=== PATIENT | male | born 1985 | race Caucasian/White ===

== ENCOUNTER → 2020-12-16 08:24 | Outpatient (CLI) | payer BC, SELFPAY ==
[2020-12-16 09:11] LABS: Basophils # 0.1 K/mm3 (0-0.2); Basophils % 1.2 % (0.1-2.0); Eosinophils # 0.2 K/mm3 (0.0-0.4); Eosinophils % 3.5 % (0.1-12.0); Hematocrit 43.2 % (42.0-52.0); Hemoglobin 15.1 g/dL (14.1-18.0); Lymphocytes # 1.6 K/mm3 (0.7-4.5); Lymphocytes % 22.2 % (10-50); Mean Corpuscular Hemoglobin 33.6 pg (27.0-31.2); Mean Platelet Volume 7.6 fl (7.4-10.4); Monocytes # 0.4 K/mm3 (0.1-1.0); Monocytes % 5.5 % (1.7-9.3); Neutrophils # 4.7 K/mm3 (1.8-7.8); Neutrophils % 67.5 % (37.0-80.0); Platelet Count 266 K/mm3 (142-424); Red Cell Distribution Width 13.7 % (11.5-17.5)
[2020-12-16 10:00] LABS: Chloride 103 mmol/L (98-107); Sodium 140 mmol/L (136-145)
[2020-12-16 10:01] LABS: Potassium 4.1 mmoL/L (3.5-5.1)
[2020-12-16 10:03] LABS: Blood Urea Nitrogen 15 mg/dl (9-20); Estimated Glomerular Filt Rate 97 ml/min (>60); GFR (African American) 117 ML/MIN (>60)
[2020-12-16 10:04] LABS: Anion Gap 14.1 mEq/L (5-15); Calcium 8.9 mg/dl (8.4-10.2); Carbon Dioxide 27 mmol/L (22.0-30.0); Glucose 105 mg/dl (74-100)
== END ==
PROVIDERS: Visit Provider Surgery
DX: L72.9 Follicular cyst of the skin and subcutaneous tissue, unspecified (principal)
CPT/HCPCS: 36415; 80048; 85025

== ENCOUNTER → 2020-12-18 07:41 | Outpatient (CLI) | payer BC, SELFPAY | PROVIDERS: Visit Provider Surgery | DX: Z01.812 Encounter for preprocedural laboratory examination (principal); Z11.52 Encounter for screening for COVID-19; L72.9 Follicular cyst of the skin and subcutaneous tissue, unspecified | CPT/HCPCS: U0003 ==

== ENCOUNTER 2020-12-19 07:03 | Day surgery (SDC) | payer BC, SELFPAY ==
[2020-12-15 14:41] VITALS: BMI 44.4
[2020-12-19] VITALS (9 sets, daily range): BP systolic 146–189; BP diastolic 86–108; PULSE 65–96; RESP 14–18; TEMP 36.2–36.3; O2SAT 96–100
--- NOTE | 2020-12-19 07:43 | P.PN_ITS ---
[facility] Anesthesia Checklist - Patient Identification Patient Identification: Arm Band - Structural Data Admitted From: Home Planned Operative Procedure/s: Scalp mass excision Consent for Planned Operative Procedure(s) Verified: Yes - NPO Status Verified Time NPO: 00:00 - Additional verifications Anesthesia Reactions: No Hx Blood Transfusions: No Blood Transfusion Reaction: No - Airway Assessment C-Spine Mobility Assessed: Yes TMJ Mobility Assessed: Yes Dentition: Poor Dentition - Neurological Assessment Level of Consciousness: Awake Hx Seizures: No Numbness or tingling in extremities: No - Anesthesia Plan Anesthesia Risk discussed: Yes Anesthesia Plan: Verified ASA Class: II Anesthesia Type: General [facility] History I have reviewed the patient's past medical history: Yes Medical History: Denies:: Cancer, Diabetes Mellitus Type 1, Diabetes Mellitus Type 2, Internal Pacemaker, MRSA, Seizures *Have you ever received a pneumonia vaccine?: No *Have you received a flu vaccine this season?: Yes Other Medical History: Reports: Other (Obesity). Denies: Blood Transfusion Reaction Anesthesia experience/problems:: None Laterality Cases: Bilateral: Tonsillectomy Other Surgeries: No: Pacemaker Amputation: No - *Social History Smoking Status: Heavy tobacco smoker Tobacco Type: smokeless tobacco # Packs/Day (cigarettes): 1 Alcohol Intake: current Alcohol Intake Frequency:: a few times a month (Weekly) Substance Use Type: denies use *Occupational Status:: employed Housing: house *Travel in the last 8 weeks: None Family Hx:: Cancer, Diabetes
--- NOTE | 2020-12-19 09:39 | P.OP_ITS ---
Date of procedure: 12/19/20 Pre-op Diagnosis:: Scalp cyst Post-op Diagnosis:: Same Procedure performed:: Excision of cyst from the scalp (excisional length of 7.0 cm) with intermediate complexity closure Surgeon:: Jean Carlos Dao MD TRAINING AND DEVELOPMENT COORDINATOR:: Other Anesthesia: LMA Estimated blood loss (mL): 50 Clinical Note:: Patient is a 35-year-old who presents to the office for evaluation of the cyst on his scalp. He does not have a primary care provider. He had been diagnosed with sebaceous cyst on his scalp at age 20. It has been present for about 15 years. It has increased in size particularly over the past 6 months. It is somewhat irritating. Patient was seen and examined in the office. He had a rather large inclusion cyst on the apex of the scalp. Options were discussed. He wished to pursue excision. Operative findings:: Consistent with a large inclusion cyst, pilar cyst. Operative note:: Consent was obtained and patient was taken to the operating room. He was positioned in supine position. General anesthesia was induced via LMA. The area was prepped and draped in the standard surgical fashion. Lesion was marked with skin marker for planned elliptical excision. Length of the elliptical incision was approximately 7 cm. Local anesthetic was infiltrated. Skin incision was made. Careful dissection was carried down to the cyst wall. The cyst was carefully dissected free from the surrounding scalp tissues using tenotomy dissection and some use of scalpel. Ultimately the skin ellipse with the attached intact cyst was sent off as specimen. Wound was thoroughly irrigated. Tissues were undermined somewhat using electrocautery. Local anesthetic was infiltrated. Hemostasis was achieved with electrocautery. Tissues reapproximated with interrupted 2-0 Vicryl. Skin was closed with skin milton. Clean dry sterile dressing was applied. Condition: stable Disposition: PACU Specimens:: Scalp cyst Complications:: None immediately apparent
--- NOTE | 2020-12-19 11:03 | HMH.ANESI ---
[facility] Anesthesia Record Part I Intake, IV Amount: 1,000 Estimated blood loss (mL): 50 Urine output (mL): 0 Blood Pressure: 162/86 SaO2: 97 Pulse Rate: 96 Respiratory Rate: 14 Temperature: 97.3 F Patient is:: Awake, Drowsy Stable to PACU at:: 09:54
--- NOTE | 2020-12-21 12:15 | P.PN_ITS ---
[facility] Anesthesia Record Part II Discharge Time: 10:14 Destination: [facility] PACU nurse assessment reviewed?: Yes Patient Condition:: Good Anesthesia Complications:: None Swallowing reflex intact?: Yes Cyanosis?: No Blood Pressure: 181/97 Pulse Rate: 70 Temperature: 97.1 F Mental Status: Alert & Oriented Pain level:: 0 Nausea and/or vomitting:: None Intake, IV Amount: 500
[2020-12-21 12:17] VITALS: BP 181/97; PULSE 70; TEMP 36.2
== END 2020-12-19 10:44 | disposition home or self-care (01) ==
PROVIDERS: PCP Emergency Medicine; Visit Provider Surgery
PROC: (CPT 11426; principal; 2020-12-19 08:45)
DX: L72.8 Other follicular cysts of the skin and subcutaneous tissue (principal); Z72.0 Tobacco use; Z80.9 Family history of malignant neoplasm, unspecified; Z83.3 Family history of diabetes mellitus
CPT/HCPCS: 11426; 12031; 96374; J0131; J2405

== ENCOUNTER → 2022-06-04 08:45 | Outpatient (CLI) | payer BC, SELFPAY ==
[2022-06-04 17:24] LABS: Basophils # 0.1 K/mm3 (0-0.2); Basophils % 1.5 % (0.1-2.0); Eosinophils # 0.2 K/mm3 (0.0-0.4); Eosinophils % 3.5 % (0.1-12.0); Hematocrit 46.1 % (42.0-52.0); Hemoglobin 15.2 g/dL (14.1-18.0); Lymphocytes # 1.6 K/mm3 (0.7-4.5); Lymphocytes % 22.7 % (10-50); Mean Corpuscular Hemoglobin 33.9 pg (27.0-31.2); Mean Corpuscular Volume 102.7 fl (80-94); Mean Platelet Volume 9.9 fl (7.4-10.4); Monocytes # 0.5 K/mm3 (0.1-1.0); Monocytes % 6.5 % (1.7-9.3); Neutrophils # 4.6 K/mm3 (1.8-7.8); Neutrophils % 65.8 % (37.0-80.0); Platelet Count 325 K/mm3 (142-424); Red Blood Count 4.49 M/mm3 (4.60-6.20); Red Cell Distribution Width 12.8 % (11.5-17.5); White Blood Count 6.9 K/mm3 (4.8-10.8)
[2022-06-04 17:34] LABS: Alanine Aminotransferase 234 U/L (12-78); Albumin Level 4.8 g/dl (3.5-5.0); Albumin/Globulin Ratio 1.8 (1.1-1.8); Alkaline Phosphatase 169 U/L (38-126); Anion Gap 16.9 mEq/L (5-15); Aspartate Amino Transferase 153 U/L (17-59); Bilirubin,Total 0.9 mg/dl (0.2-1.3); Blood Urea Nitrogen 14 mg/dl (9-20); Calcium 10.1 mg/dl (8.4-10.2); Carbon Dioxide 30 mmol/L (22.0-30.0); Chloride 99 mmol/L (98-107); Chol/HDL Ratio 5.2 (1-3.5); Cholesterol 262 mg/dl (140-200); Estimated Glomerular Filt Rate 96 ml/min (>60); GFR (African American) 116 ML/MIN (>60); Globulin 2.7 g/dL (1.3-3.2); Glucose 90 mg/dl (74-100); HDL Cholesterol 50 mg/dl (40-60); Potassium 4.9 mmoL/L (3.5-5.1); Sodium 141 mmol/L (136-145); Total Protein,Serum 7.5 g/dl (6.3-8.2); Triglycerides 130 mg/dl (30-150); VLDL Cholesterol 26 mg/dL (0-40)
[2022-06-04 17:45] LABS: Direct LDL Cholesterol 182.75 mg/dL (100-129)
[2022-06-04 17:49] LABS: 25-OH Vitamin D, Total 23.9 ng/mL (30-100)
[2022-06-04 18:04] LABS: Thyroid Stimulating Hormone 2.78 uIU/mL (0.465-4.68)
== END ==
LOC: LAB.DROPOF 06-05 06:27
PROVIDERS: PCP Student in an Organized Health Care Education/Training Program; Visit Provider Student in an Organized Health Care Education/Training Program
DX: I10 Essential (primary) hypertension (principal); R53.83 Other fatigue; E55.9 Vitamin D deficiency, unspecified
CPT/HCPCS: 80053; 80061; 82306; 84443; 85025

== ENCOUNTER → 2022-07-04 09:00 | Outpatient (CLI) | payer BC, SELFPAY ==
[2022-07-04 14:56] LABS: Basophils # 0.1 K/mm3 (0-0.2); Basophils % 1.4 % (0.1-2.0); Eosinophils # 0.2 K/mm3 (0.0-0.4); Eosinophils % 2.7 % (0.1-12.0); Hematocrit 46.5 % (42.0-52.0); Hemoglobin 15.1 g/dL (14.1-18.0); Lymphocytes # 1.5 K/mm3 (0.7-4.5); Lymphocytes % 24.7 % (10-50); Mean Corpuscular HGB Conc 32.4 g/dL (31.8-35.4); Mean Corpuscular Hemoglobin 33.3 pg (27.0-31.2); Mean Corpuscular Volume 102.8 fl (80-94); Mean Platelet Volume 9.6 fl (7.4-10.4); Monocytes # 0.4 K/mm3 (0.1-1.0); Neutrophils % 65.2 % (37.0-80.0); Platelet Count 356 K/mm3 (142-424); Red Blood Count 4.53 M/mm3 (4.60-6.20); White Blood Count 6.1 K/mm3 (4.8-10.8)
[2022-07-04 15:17] LABS: Hemoglobin A1C 5.4 % (4.0-6.0)
[2022-07-04 15:23] LABS: Alanine Aminotransferase 148 U/L (12-78); Albumin Level 4.7 g/dl (3.5-5.0); Albumin/Globulin Ratio 1.8 (1.1-1.8); Alkaline Phosphatase 175 U/L (38-126); Aspartate Amino Transferase 120 U/L (17-59); Blood Urea Nitrogen 15 mg/dl (9-20); Calcium 9.7 mg/dl (8.4-10.2); Carbon Dioxide 28 mmol/L (22.0-30.0); Chloride 105 mmol/L (98-107); Chol/HDL Ratio 5.5 (1-3.5); Cholesterol 247 mg/dl (140-200); Estimated Glomerular Filt Rate 85 ml/min (>60); GFR (African American) 103 ML/MIN (>60); Globulin 2.6 g/dL (1.3-3.2); Glucose 113 mg/dl (74-100); HDL Cholesterol 45 mg/dl (40-60); Sodium 142 mmol/L (136-145); Total Protein,Serum 7.3 g/dl (6.3-8.2); Triglycerides 178 mg/dl (30-150); VLDL Cholesterol 36 mg/dL (0-40)
[2022-07-04 15:34] LABS: Direct LDL Cholesterol 165.17 mg/dL (100-129)
[2022-07-04 16:23] LABS: Vitamin B12 610 pg/mL (239-931)
[2022-07-04 16:31] LABS: Folate 5.91 ng/mL
[2022-07-13 22:46] LABS: Hep A Ab, IgM NEGATIVE; Hepatitis B Core Antibody IgM NEGATIVE; Hepatitis B Surface Antigen NEGATIVE; Hepatitis C Antibody 0.1
== END ==
PROVIDERS: PCP Student in an Organized Health Care Education/Training Program; Visit Provider Student in an Organized Health Care Education/Training Program
DX: I10 Essential (primary) hypertension (principal); R60.9 Edema, unspecified; R74.8 Abnormal levels of other serum enzymes
CPT/HCPCS: 80053; 80061; 80074; 82607; 82746; 83036; 85025

== ENCOUNTER → 2022-07-18 08:11 | Outpatient (CLI) | payer BC, SELFPAY ==
--- NOTE | 2022-07-18 08:15 | CA_ITS ---
FINAL REPORT TECHNIQUE: Grayscale, color Doppler and duplex Doppler ultrasound of the kidneys, aorta and renal arteries was performed. Multiple velocities were measured. CLINICAL HISTORY: uncontrolled htn, Obesity, Smoker FINDINGS: Aorta velocity: 91.5 cm/sec Right kidney: 11.7 cm. No evidence of hydronephrosis or mass. Right intrarenal RI: .66 Right renal artery velocity: 178 cm/sec. Right RAR (Renal artery-Aortic Ratio): 1.94 Left Kidney: 12.0 cm. No evidence of hydronephrosis or mass. Left intrarenal RI: .64 Left renal artery velocity: 172 cm/sec. Left RAR (Renal Artery-Aortic Ratio): 1.88 IMPRESSION: No evidence of significant renal artery stenosis. CT angiogram or postcontrast MR angiogram would be more sensitive for evaluation of possible renal artery stenosis. Reviewed, Interpreted and Dictated by Jean Carlos Starr III, MD Transcribed by Alley Robbins Authenticated and [facility]
--- NOTE | 2022-07-18 08:19 | US_ITS ---
FINAL REPORT CLINICAL HISTORY: Elevated Liver Enzymes FINDINGS: Ultrasound images of the right upper quadrant were obtained. The pancreas is partially obscured. The liver parenchyma is increased echogenicity. The gallbladder is well visualized and the wall appears normal. There are no gallstones. The common duct is normal. Limited images of the right kidney are unremarkable. IMPRESSION: Fatty liver. Reviewed, Interpreted and Dictated by Jean Carlos Starr III, MD Transcribed by Bennett Mahoney Authenticated and . [facility]
== END ==
PROVIDERS: PCP Student in an Organized Health Care Education/Training Program; Visit Provider Student in an Organized Health Care Education/Training Program
DX: I10 Essential (primary) hypertension (principal); R74.8 Abnormal levels of other serum enzymes
CPT/HCPCS: 76705; 93976

== ENCOUNTER 2022-09-30 11:06 | Emergency (ER) | payer BC, SELFPAY ==
[2022-09-30 11:08] VITALS: BP 160/85; PULSE 100; RESP 18; TEMP 36.6; O2SAT 99; BMI 46.5
--- NOTE | 2022-09-30 11:10 | HMH.EDGENADL ---
Discharge Plan Disposition Patient Disposition: Home, Self-Care Prescriptions Prescriptions: No Action amoxicillin 875 mg tablet 875 mg PO BID Qty: 14 0RF atorvastatin 10 mg tablet 10 mg PO DAILY Qty: 30 2RF lisinopril-hydrochlorothiazide 20-12.5 mg tablet See Rx Instructions .ROUTE .COMPLEX Qty: 30 1RF Dose Instruction: 1 TAB ORALLY DAILY Rx Instructions: 1 TAB ORALLY DAILY Referrals Follow up/Referrals: Mali Nava PA [Primary Care Provider] - See instructions Activity Restrictions/Add. Instructions Additional Instructions/Restrictions: Your chest x-ray did not show any obvious focal consolidation is not consistent with pneumonia. Your cough with hemoptysis which is coughing up blood is most likely due to viral bronchitis. Antibiotics are not indicated unless you have pneumonia or prolonged symptoms beyond 2 weeks. Please return with worsening shortness of breath inability keep fever down or with persistent symptoms beyond 2 to 3 weeks. Clinical Impressions Clinical Impression: Bronchitis, Cough with hemoptysis Discharge ED Provider: Cindi Khan General Adult HPI General Chief complaint: Upper Respiratory Infection Stated complaint: rib,congestion pain, Coughing up blood Time Seen by Provider: 09/30/22 11:10 History of Present Illness HPI narrative: Patient is a 37-year-old male presenting with hemoptysis. States that he started to get chest congestion and sinus congestion several days ago and has been coughing since that time and over the last day or 2 has been having some rust colored sputum which he felt was likely blood. He denies any dre bloody sputum. Denies any shortness of breath. Does state that he has some right-sided chest discomfort with coughing and movement that was alleviated with ibuprofen. Denies any lower extremity swelling denies any history of DVT or PE. Denies any prolonged immobilization periods including surgeries plane rides or car rides that are excessively long. Denies any fever. Patient denies having been incarcerated around people who have been incarcerated recently. Patient denies any injection drug use or being around anyone who was recently been injecting drugs. Patient denies any travel outside of the country. No known tuberculosis contacts. Related Data Previous Rx's Medication Instructions Recorded amoxicillin 875 mg tablet 875 mg PO BID #14 tabs 07/04/22 atorvastatin 10 mg tablet 10 mg PO DAILY #30 tabs 07/04/22 lisinopril 20 See Rx Instructions .Route 08/22/22 mg-hydrochlorothiazide 12.5 mg .COMPLEX #30 tabs tablet Allergies Allergy/AdvReac Type Severity Reaction Status Date / Time meperidine [From Demerol] Allergy Unknown Verified 07/04/22 08:26 Sulfa (Sulfonamide Allergy Unknown Verified 07/04/22 08:26 Antibiotics) [facility] Disclaimer: The information contained in this section may have been updated after the patient was seen, as this information can be updated by other users. Medical History (Updated 09/30/22 @ 11:33 by Emani Hernadez MD) Hypertension Social History Smoking Status: Never smoker second hand exposure: No alcohol intake: current substance use type: denies use current occupational status: employed Travel in the last 8 weeks: None housing: house current occupational exposures/hazards: Yes caffeine: No ROS Obtained: Yes All systems reviewed & no additional complaints except as documented Physical Exam General General appearance: alert and in no apparent distress Respiratory Respiratory exam: Present normal lung sounds bilaterally; Absent respiratory distress, wheezes, stridor, accessory muscle use or prolonged expiratory phase Cardiovascular Cardiovascular exam: Present regular rate; Absent tachycardia Neurological Exam Neurological exam: Present alert and oriented X3 Medical Decision Making Tommy Inquiry Pt re
[2022-09-30 11:17] VITALS: BMI 46.5
--- NOTE | 2022-09-30 11:17 | XR_ITS ---
FINAL REPORT CLINICAL HISTORY: cough, hemoptysis FINDINGS: Two views of the chest were obtained. The heart size and pulmonary vascularity are within normal limits. The mediastinum is normal. No acute pulmonary abnormality is identified. There is no pneumothorax. The bony thorax is intact. IMPRESSION: No active cardiopulmonary disease. Reviewed, Interpreted and Dictated by Jean Carlos Starr III, MD Transcribed by Jennifer Lopez Authenticated and [facility]
--- NOTE | 2022-09-30 11:17 | PC.NURSE ---
[address] DR العراقي AT BEDSIDE
--- NOTE | 2022-09-30 11:22 | PC.NURSE ---
pt to xray
--- NOTE | 2022-09-30 11:23 | PC.NURSE ---
PT TO XR
--- NOTE | 2022-09-30 11:26 | PC.NURSE ---
PT RETURNED FORM XR
--- NOTE | 2022-09-30 11:30 | PC.NURSE ---
DR العراقي AT BEDSIDE TO UPDATE PT ON POC
[2022-09-30 11:37] VITALS: BP 168/119; PULSE 102; RESP 18; TEMP 36.7; O2SAT 95
== END 2022-09-30 11:38 | disposition home or self-care (01) ==
PROVIDERS: Emergency Provider Student in an Organized Health Care Education/Training Program; PCP Student in an Organized Health Care Education/Training Program
DX: J20.9 Acute bronchitis, unspecified (principal); R04.2 Hemoptysis; I10 Essential (primary) hypertension
CPT/HCPCS: 71046; 99283; 99284

== ENCOUNTER → 2023-06-13 23:53 | Outpatient (CLI) | payer BC, SELFPAY ==
[2023-06-13 19:00] LABS: Basophils # 0.1 K/mm3 (0-0.2); Eosinophils # 0.2 K/mm3 (0.0-0.4); Eosinophils % 3.4 % (0.1-12.0); Hematocrit 44.2 % (42.0-52.0); Hemoglobin 15.3 g/dL (14.1-18.0); Lymphocytes # 1.6 K/mm3 (0.7-4.5); Lymphocytes % 27.8 % (10-50); Mean Corpuscular HGB Conc 34.6 g/dL (31.8-35.4); Mean Corpuscular Hemoglobin 37.4 pg (27.0-31.2); Mean Corpuscular Volume 108.2 fl (80-94); Mean Platelet Volume 10.4 fl (7.4-10.4); Monocytes # 0.4 K/mm3 (0.1-1.0); Monocytes % 6.7 % (1.7-9.3); Neutrophils # 3.5 K/mm3 (1.8-7.8); Neutrophils % 61.1 % (37.0-80.0); Platelet Count 280 K/mm3 (142-424); Red Blood Count 4.08 M/mm3 (4.60-6.20); Red Cell Distribution Width 14.9 % (11.5-17.5); White Blood Count 5.7 K/mm3 (4.8-10.8)
[2023-06-13 19:17] LABS: Alanine Aminotransferase 189 U/L (12-78); Albumin Level 4.5 g/dl (3.5-5.0); Albumin/Globulin Ratio 1.7 (1.1-1.8); Alkaline Phosphatase 198 U/L (38-126); Anion Gap 19.3 mEq/L (5-15); Aspartate Amino Transferase 206 U/L (17-59); Bilirubin,Total 1.1 mg/dl (0.2-1.3); Blood Urea Nitrogen 11 mg/dl (9-20); Carbon Dioxide 26 mmol/L (22.0-30.0); Chloride 97 mmol/L (98-107); Chol/HDL Ratio 6.1 (1-3.5); Cholesterol 251 mg/dl (140-200); Estimated Glomerular Filt Rate 109 ml/min (>60); GFR (African American) 132 ML/MIN (>60); Globulin 2.7 g/dL (1.3-3.2); Glucose 96 mg/dl (74-100); HDL Cholesterol 41 mg/dl (40-60); Potassium 3.3 mmoL/L (3.5-5.1); Sodium 139 mmol/L (136-145); Total Protein,Serum 7.2 g/dl (6.3-8.2); Triglycerides 273 mg/dl (30-150); VLDL Cholesterol 55 mg/dL (0-40)
[2023-06-13 19:48] LABS: Thyroid Stimulating Hormone 1.73 uIU/mL (0.465-4.68)
[2023-06-13 20:30] LABS: 25-OH Vitamin D, Total < 12.8 ng/mL (30-100)
== END ==
PROVIDERS: PCP Nurse Practitioner Family; Visit Provider Student in an Organized Health Care Education/Training Program
DX: E78.5 Hyperlipidemia, unspecified (principal); I10 Essential (primary) hypertension; E55.9 Vitamin D deficiency, unspecified; Z68.42 Body mass index [BMI] 45.0-49.9, adult
CPT/HCPCS: 80053; 80061; 82306; 84443; 85025

== ENCOUNTER 2024-09-20 09:35 | Outpatient (CLI) | payer BC, SELFPAY ==
[2024-09-20 18:55] LABS: Basophils # 0.1 K/mm3 (0-0.2); Basophils % 1.5 % (0.1-2.0); Eosinophils # 0.2 K/mm3 (0.0-0.4); Eosinophils % 2.1 % (0.1-12.0); Hematocrit 44.2 % (42.0-52.0); Hemoglobin 14.8 g/dL (14.1-18.0); Lymphocytes # 1.4 K/mm3 (0.7-4.5); Lymphocytes % 19.3 % (10-50); Mean Corpuscular HGB Conc 33.5 g/dL (31.8-35.4); Mean Corpuscular Hemoglobin 37.5 pg (27.0-31.2); Mean Corpuscular Volume 111.9 fl (80-94); Mean Platelet Volume 10.6 fl (7.4-10.4); Monocytes # 0.6 K/mm3 (0.1-1.0); Monocytes % 7.7 % (1.7-9.3); Platelet Count 322 K/mm3 (142-424); Red Blood Count 3.95 M/mm3 (4.60-6.20); Red Cell Distribution Width 13.1 % (11.5-17.5); White Blood Count 7.3 K/mm3 (4.8-10.8)
[2024-09-20 20:32] LABS: Alanine Aminotransferase 120 U/L (12-78); Albumin Level 4.9 g/dl (3.5-5.0); Albumin/Globulin Ratio 1.8 (1.1-1.8); Alkaline Phosphatase 305 U/L (38-126); Anion Gap 12.7 mEq/L (5-15); Aspartate Amino Transferase 149 U/L (17-59); Bilirubin,Total 2.5 mg/dl (0.2-1.3); Blood Urea Nitrogen 9 mg/dl (9-20); Calcium 9.9 mg/dl (8.4-10.2); Carbon Dioxide 29 mmol/L (22.0-30.0); Chloride 97 mmol/L (98-107); Chol/HDL Ratio 5.6 (1-3.5); Cholesterol 245 mg/dl (140-200); Estimated Glomerular Filt Rate 126 ml/min (>60); GFR (African American) 153 ML/MIN (>60); Globulin 2.8 g/dL (1.3-3.2); Glucose 87 mg/dl (74-100); HDL Cholesterol 44 mg/dl (40-60); Potassium 3.7 mmoL/L (3.5-5.1); Sodium 135 mmol/L (136-145); Total Protein,Serum 7.7 g/dl (6.3-8.2); Triglycerides 149 mg/dl (30-150); VLDL Cholesterol 30 mg/dL (0-40)
[2024-09-20 20:44] LABS: Direct LDL Cholesterol 172.38 mg/dL (100-129)
[2024-09-20 20:48] LABS: 25-OH Vitamin D, Total 19.1 ng/mL (30-100)
[2024-09-20 21:03] LABS: Thyroid Stimulating Hormone 4.65 uIU/mL (0.465-4.68)
[2024-09-20 21:10] LABS: HIV Combo NEGATIVE (Negative)
[2024-09-20 21:17] LABS: Hepatitis C Ab Qual. W/ RFX NEGATIVE (Negative)
== END 2024-09-20 23:59 | disposition home or self-care (01) ==
LOC: LAB.DROPOF 09-21 17:27
PROVIDERS: PCP Family Medicine; Visit Provider Family Medicine
DX: I10 Essential (primary) hypertension (principal)
CPT/HCPCS: 80053; 80061; 82306; 84443; 85025; 86803; 87389

== ENCOUNTER 2024-10-15 07:56 | Outpatient (CLI) | payer BC, SELFPAY ==
--- NOTE | 2024-10-15 08:00 | US_ITS ---
FINAL REPORT TECHNIQUE: Multiple transverse and longitudinal images CLINICAL HISTORY: ELEVATED LIVER ENZYMES COMPARISON: 07/18/2022 FINDINGS: The gallbladder shows no wall thickening, distention or stone disease. No biliary ductal dilatation is appreciated. No fluid collections are seen. There is fatty infiltration of the liver. Limited portions of the right kidney are unremarkable. IMPRESSION: Fatty liver. Reviewed, Interpreted and Dictated by Yesy De Jesus MD Transcribed by Saba Beltran Authenticated and [facility]
== END 2024-10-15 23:59 | disposition home or self-care (01) ==
LOC: RAD 07:57
PROVIDERS: PCP Family Medicine; Visit Provider Family Medicine
DX: R74.8 Abnormal levels of other serum enzymes (principal); K76.0 Fatty (change of) liver, not elsewhere classified
CPT/HCPCS: 76705

== ENCOUNTER 2025-05-11 17:36 | Inpatient (IN) | payer BC, SELFPAY ==
[2025-05-11 17:38] VITALS: BP 122/86; PULSE 69; RESP 20; TEMP 36.5; O2SAT 100; BMI 40.0
--- NOTE | 2025-05-11 17:40 | ED_ITS ---
Discharge Plan Disposition Patient Disposition: Admitted Condition: Good Clinical Impressions Clinical Impression: Acute kidney injury, Acute foot pain Discharge ED Provider: Rony Elder General Adult HPI <DALTON Caballero - Last Filed: 05/11/25 19:04> General Chief complaint: Extremity Injury, Lower Stated complaint: right foot painful,swollen Time Seen by Provider: 05/11/25 17:39 Mode of Arrival: Ambulatory Source of Information: Patient and Spouse Limitations: No Limitations History of Present Illness HPI narrative: 39-year-old male presents emergency department with right foot/great toe pain that has been ongoing for the last 2 weeks, patient denies any trauma or injury per history, denies any fever chills chest pain shortness of breath nausea vomiting constipation diarrhea, no abdominal pain, no urinary type symptomatology, no melena no hematochezia, no hematuria, no lower back pain, no urinary bladder or bowel dysfunction, no radicular type symptomatology, no numbness or tingling, patient is a non-smoker, current everyday alcohol use patient tells me he drinks 1 glass of bourbon a day , denies any other illicit drug use, other past medical history is consistent with VELASQUEZ, hypertension, obesity, ELIZABETH, hyperlipidemia, history of gastric sleeve. Initial triage vitals are unremarkable. Also of note, patient has been utilizing Motrin and Tylenol as needed for symptomatic relief, has had some difficulty ambulating for the spouse at the bedside, Motrin and Tylenol have provided some relief. Last use was around 2 PM today. Also of note, patient relayed to nursing staff that he believes that eating fish , around 2 weeks ago precipitated his great toe pain on the right. Please note that above description of symptoms, in this electronic medical record under categorization of recalled from ER triage doctor by RN are reflective of an initial nursing assessment, however, is not reflective of my full history and physical exam that was personally taken and clarified. Consequentially, this preceding description of symptoms, which may include the patient's categorized chief complaint in the EMR, do not reflect my personal clinical impression, and the ultimate description of history of present illness and patient stated complaints should be deferred to this section of the note. Unless stated otherwise or congruent with this section of the note, additional signs, symptoms, or incongruence should be interpreted as inaccurate with my clinical impression. Onset (ago): week(s) Related Data Previous Rx's ?Medication ?Instructions ?Recorded atorvastatin 20 mg tablet (Lipitor) 20 mg PO DAILY #30 tabs 09/30/24 cholecalciferol (vitamin D3) 1,250 1,250 mcg PO WEEKLY #5 tabs 09/30/24 mcg (50,000 unit) tablet lisinopril 20 2 tab PO DAILY #60 tabs 09/25 04/21 mg-hydrochlorothiazide 25 mg tablet bisoprolol fumarate 10 mg tablet See Rx Instructions . Route 01/07/25 .COMPLEX #90 tabs Allergies Allergy/AdvReac Type Severity Reaction Status Date / Time meperidine (From Demerol) Allergy Unknown Verified 09/20/24 09:19 Sulfa (Sulfonamide Allergy Unknown Verified 09/20/24 09:19 Antibiotics) amlodipine AdvReac Rash Verified 09/20/24 09:19 [facility] <DALTON Caballero - Last Filed: 05/11/25 19:04> [facility] Disclaimer: The information contained in this section may have been updated after the patient was seen, as this information can be updated by other users. Medical History (Updated 05/11/25 @ 20:13 by Rony Elder DO) Cough with hemoptysis Bronchitis Scalp cyst Hypertension Hyperlipidemia Surgical History No significant past surgical history Family History Other No significant family history Social History Smoking Status: Never smoker second hand exposure: No alcohol intake: current alcohol intake frequency: a few times a month substance use type: denies use current occupational status: employed Travel in the last 8 weeks?: None housing: house current occupational exposures/hazards: Yes caffeine: No Have you lived/traveled outside [place] in past 30 days?: No Contact w/someone who lives/traveled outside [place] past 30 days?: No Exposure to someone with infectious disease in past 14 days?: No Do you have a fever (greater than 100.4 F or 38 C)?: No Have you tested positive for COVID-19?: No Exposed to someone with COVID-19 in past 14 days?: No Do you have a sore throat?: No Do you have a cough?: No Do you have any weakness?: No Do you have any diarrhea?: No Are you experiencing any unusual bleeding?: No Do you have any muscle aches/pain?: No Do you have any abdominal pain?: No Are you experiencing loss of taste or smell?: No Other Medical History Have you received the Flu Vaccine for this season: Yes Have you received the Pneumonia Vaccine: No <DALTON Caballero - Last Filed: 05/11/25 19:04> ROS Obtained: Yes All systems reviewed & no additional complaints except as documented Physical Exam <DALTON Caballero - Last Filed: 05/11/25 19:04> General General appearance: alert and in no apparent distress Head Head exam: atraumatic and normocephalic Eye Eye exam: Present PERRL and EOMI ENT ENT exam: Present mucous membranes moist Neck Neck exam: Present normal inspection Chest Chest inspection: Present normal inspection and symmetric chest wall rise Respiratory Respiratory exam: Present normal lung sounds bilaterally; Absent respiratory distress Cardiovascular Cardiovascular exam: Present regular rate and normal rhythm Abdominal Exam Abdominal exam: Present soft; Absent tenderness Extremities Exam Extremities exam: Present normal inspection, full ROM, tenderness and other (There is minimal to mild soft tissue swelling of the great toe, some pain to palpation over the great toe/first MTP joint, no erythema, no obvious acute deformity or open fracture, patient has good strength, moves extremity command with good movement plantarflexion and dorsiflexion, negative Homans') Neurological Exam Neurological exam: Present alert and oriented X3 Psychiatric Psychiatric exam: Present normal affect Skin Skin exam: Present warm and dry; Absent erythema Medical Decision Making <DALTON Caballero - Last Filed: 05/11/25 19:04> Medical Records Medical records reviewed: Yes I reviewed the patient's medical records. Screening: Per USPSTF and CDC recommendations, given the prevalence of disease in our region, it is our hospital?s policy to screen for HIV and viral Hepatitis for all patients aged 18 and over and those with ongoing risk factors. Tommy Inquiry Pt receiving controlled substance: Yes Tommy was queried for this patient: No Reason not queried -: Emergent pt cond-no time Risks and benefits of using a controlled substance: were discussed with pt by me Vital Signs: 05/11/25 17:38 05/11/25 19:12 05/11/25 19:57 Temperature 97.7 F 98.9 F Temperature Source Oral Oral Pulse Rate 66 57 L Pulse Rate [Left Radial] 69 Respiratory Rate 20 17 Blood Pressure 107/62 L 108/67 L Blood Pressure [Right Arm] 122/86 Blood Pressure Mean [Right Arm] 98 02 Sat by Pulse Oximetry 100 100 Oxygen Delivery Method Room Air Room Air Room Air Lab Data Lab results reviewed: Yes I reviewed the patient's lab results. Lab Results 05/11/25 17:50: WBC 5.7, RBC 2.77 L, Hgb 11.0 L, Hct 31.7 L, MCV 114.4 H, MCH 39.7 H, MCHC 34.7, RDW 14.3, Plt Count 249, MPV 10.4, Neut % (Auto) 62.0, Lymph % (Auto) 26.8, [place] % (Auto) 6.0, Eos % (Auto) 3.9, Baso % (Auto) 0.9, Neut # (Auto) 3.6, Lymph # (Auto) 1.5, [place] # (Auto) 0.3, Eos # (Auto) 0.2, Baso # (Auto) 0.1, ESR 38 H, Sodium 136, Potassium 4.8, Chloride 105, Carbon Dioxide 18 L, Anion Gap 17.8 H, BUN 40 H, Creatinine 3.10 H, Estimated Creat Clear 61, E stimated GFR 23 L, Est GFR ( Amer) 27 L, Glucose 109 H, Uric Acid 13.7 H, Calcium 8.8, Total Bilirubin 1.2, AST 79 H, ALT 65, Alkaline Phosphatase 239 H, C-Reactive Protein 5.7 H, Total Protein 7.4, Albumin 4.2, Globulin 3.2, Albumin/Globulin Ratio 1.3 05/11/25 17:50 05/11/25 17:50 Orders (Tests/Meds): ED MEDICATIONS Generic Name Dose Route Start Last Admin Trade Name Freq PRN Reason Stop Dose Admin Lactated Ringer's 1,000 mls @ 999 mls/hr 05/11/25 19:49 05/11/25 19:52 Lactated Ringer's 1000 Ml Bag IV 05/11/25 20:49 999 mls/hr .Q1H1M ONE Administration Discontinued Medications Generic Name Dose Route Start Last Admin Trade Name Freq PRN Reason Stop Dose Admin Colchicine 1.2 mg 05/11/25 18:40 05/11/25 18:57 Colchicine 0.6mg Tablet PO 05/11/25 18:41 1.2 mg ONCE ONE Administration Oxycodone HCl 5 mg 05/11/25 17:58 05/11/25 18:04 Oxycodone 5mg Immediate Release Tablet PO 05/11/25 17:59 5 mg ONCE ONE Administration Prednisone 40 mg 05/11/25 18:40 05/11/25 18:57 Prednisone 20mg Tab PO 05/11/25 18:41 40 mg ONCE ONE Administration ORDERS Category Date Time Status XR foot RT min 3V Stat Exams 05/11/25 17:53 Completed CRP [C-Reactive Protein] Stat Lab 05/11/25 17:50 Completed Complete Blood Count Auto Diff Stat Lab 05/11/25 17:50 Completed Comprehensive Metabolic Panel Stat Lab 05/11/25 17:50 Completed ESR [Erythrocyte Sedimentation Rate] Stat Lab 05/11/25 17:50 Completed Uric Acid Stat Lab 05/11/25 17:50 Completed Medical Decision Narrative: 39-year-old male presents the emergency department with right foot pain no trauma or injury per history for 2 weeks, most localized to the first great toe, differential diagnose include but not limited to stress/march fracture, foot sprain/strain, osteoarthritis, gouty arthritis, pseudogout, cellulitis, overuse injury, ligamentous injury among others. Will obtain x-ray of the foot, CRP CBC CMP ESR uric acid level, and will give 5 mg p.o. oxycodone for symptomatic relief. ESR is mildly evaded at 38 CBC is notable for erythrocyte opinion at 2.7, hemoglobin hematocrit are 11 and 31.7 respectively. CMP is notable for AST elevation at 79 which is improved from previous in August 2024. ALP is elevated at 239 does appear improved from August 2024. Will give 1.2 mg colchicine p.o. load here in the emergency department as well as 40 mg p.o. prednisone here in the emergency department. I discussed this patient's case with the attending physician Dr. Elder at shift change who will be assuming the patient's care/workup, disposition is pending laboratory studies and x-ray results. <Rony Elder, DO - Last Filed: 05/11/25 20:13> Vital Signs: 05/11/25 17:38 05/11/25 19:12 05/11/25 19:57 Temperature 97.7 F 98.9 F Temperature Source Oral Oral Pulse Rate 66 57 L Pulse Rate [Left Radial] 69 Respiratory Rate 20 17 Blood Pressure 107/62 L 108/67 L Blood Pressure [Right Arm] 122/86 Blood Pressure Mean [Right Arm] 98 02 Sat by Pulse Oximetry 100 100 Oxygen Delivery Method Room Air Room Air Room Air Lab Data Lab Results 05/11/25 17:50: WBC 5.7, RBC 2.77 L, Hgb 11.0 L, Hct 31.7 L, MCV 114.4 H, MCH 39.7 H, MCHC 34.7, RDW 14.3, Plt Count 249, MPV 10.4, Neut % (Auto) 62.0, Lymph % (Auto) 26.8, [place] % (Auto) 6.0, Eos % (Auto) 3.9, Baso % (Auto) 0.9, Neut # (Auto) 3.6, Lymph # (Auto) 1.5, [place] # (Auto) 0.3, Eos # (Auto) 0.2, Baso # (Auto) 0.1, ESR 38 H, Sodium 136, Potassium 4.8, Chloride 105, Carbon Dioxide 18 L, Anion Gap 17.8 H, BUN 40 H, Creatinine 3.10 H, Estimated Creat Clear 61, E stimated GFR 23 L, Est GFR ( Amer) 27 L, Glucose 109 H, Uric Acid 13.7 H, Calcium 8.8, Total Bilirubin 1.2, AST 79 H, ALT 65, Alkaline Phosphatase 239 H, C-Reactive Protein 5.7 H, Total Protein 7.4, Albumin 4.2, Globulin 3.2, Albumin/Globulin Ratio 1.3 Orders (Tests/Meds): ED MEDICATIONS Generic Name Dose Route Start Last Admin Trade Name Freq PRN Reason Stop Dose Admin Lactated Ringer's 1,000 mls @ 999 mls/hr 05/11/25 19:49 05/11/25 19:52 Lactated Ringer's 1000 Ml Bag IV 05/11/25 20:49 999 mls/hr .Q1H1M ONE Administration Discontinued Medications Generic Name Dose Route Start Last Admin Trade Name Freq PRN Reason Stop Dose Admin Colchicine 1.2 mg 05/11/25 18:40 05/11/25 18:57 Colchicine 0.6mg Tablet PO 05/11/25 18:41 1.2 mg ONCE ONE Administration Oxycodone HCl 5 mg 05/11/25 17:58 05/11/25 18:04 Oxycodone 5mg Immediate Release Tablet PO 05/11/25 17:59 5 mg ONCE ONE Administration Prednisone 40 mg 05/11/25 18:40 05/11/25 18:57 Prednisone 20mg Tab PO 05/11/25 18:41 40 mg ONCE ONE Administration ORDERS Category Date Time Status XR foot RT min 3V Stat Exams 05/11/25 17:53 Completed CRP [C-Reactive Protein] Stat Lab 05/11/25 17:50 Completed Complete Blood Count Auto Diff Stat Lab 05/11/25 17:50 Completed Comprehensive Metabolic Panel Stat Lab 05/11/25 17:50 Completed ESR [Erythrocyte Sedimentation Rate] Stat Lab 05/11/25 17:50 Completed Uric Acid Stat Lab 05/11/25 17:50 Completed Medical Decision Narrative: 39-year-old male presents the emergency department with right foot pain no trauma or injury per history for 2 weeks, most localized to the first great toe, differential diagnose include but not limited to stress/march fracture, foot sprain/strain, osteoarthritis, gouty arthritis, pseudogout, cellulitis, overuse injury, ligamentous injury among others. Will obtain x-ray of the foot, CRP CBC CMP ESR uric acid level, and will give 5 mg p.o. oxycodone for symptomatic relief. ESR is mildly evaded at 38 CBC is notable for erythrocyte opinion at 2.7, hemoglobin hematocrit are 11 and 31.7 respectively. CMP is notable for AST elevation at 79 which is improved from previous in August 2024. ALP is elevated at 239 does appear improved from August 2024. Will give 1.2 mg colchicine p.o. load here in the emergency department as well as 40 mg p.o. prednisone here in the emergency department. I discussed this patient's case with the attending physician Dr. Elder at [facility] who will be assuming the patient's care/workup, disposition is pending laboratory studies and x-ray results. I was consulted by the CHERISE, and we discussed the complexity of problems being addressed. I approved the treatment and management plan for this patient's care in the emergency department, thus performing a substantive portion of the medical decision making. Rony Elder DO This is Dr. Elder. I received handoff of care on this patient at 7 PM from the outgoing provider. I agree with his assessment and plan listed above. The patient essentially presented with significant pain that is worse with weightbearing along the first metatarsophalangeal joint. He states that his mother has a history of gout, he has a diet that is heavy in meat as well as alcohol. He states that he has been taking Motrin 600 mg daily for the past several days. This has minimally helped his symptoms. Leading suspicion was that this patient was experiencing new onset gout so we obtained hematologic labs as well as an x-ray of the right foot. We also treated the patient with 1.2 mg of a colchicine load as well as 40 mg of prednisone here in the emergency department. The patient's labs did result and were significant for an acute kidney injury with a creatinine of 3.1, his baseline is 0.7. He does not have any significant electrolyte derangements otherwise and his potassium is normal. No leukocytosis. I do not feel that the degree of Motrin that he has been taking would account for this significant of an acute kidney injury, although I guess it is possible. Additionally the patient states that he has been drinking plenty of nonalcoholic liquid beverages at home and he is producing adequate amounts of urine. The patient definitely necessitates admission to the hospital for further workup of the etiology of his acute kidney injury. Therefore I had an interactive discussion with the hospital medicine service who agreed to evaluate the patient in the emergency department. After our discussion and their evaluation they agreed to admit the patient to their service and accept primary responsibility of the patient moving forward. Of note, after informed the patient that he necessitates admission to the hospital he had a vasovagal episode where he became pale and diaphoretic and nearly lost consciousness. We did obtain an EKG during this time which was personally interpreted by me and demonstrated normal sinus rhythm at a rate of 60 bpm, normal axis, no MT prolongation, narrow QRS, no QTc prolongation. No ST elevation or depression. No overt signs of ischemia or arrhythmia Critical Care <DALTON Caballero - Last Filed: 05/11/25 19:04> Critical Care Time Critical Care Time: No
--- NOTE | 2025-05-11 17:53 | XR_ITS ---
PROCEDURE INFORMATION: Exam: XR Right Foot Exam date and time: 05/11/2025 5:58 PM Age: 39 years old Clinical indication: Pain; Foot; Right; Additional info: Great toe and dorsal foot pain no injury TECHNIQUE: Imaging protocol: Radiologic exam of the right foot. Views: 3 or more views. COMPARISON: No relevant prior studies available. FINDINGS: Bones/joints: Normal. Soft tissues: Normal. IMPRESSION: No acute findings.
[2025-05-11] MEDS: OXYCODONE 5MG IMMEDIATE RELEASE TABLET 5 MG PO (18:04)
[2025-05-11 18:19] LABS: Albumin Level 4.2 g/dl (3.5-5.0); Chloride 105 mmol/L (98-107); Potassium 4.8 mmoL/L (3.5-5.1); Sodium 136 mmol/L (136-145)
[2025-05-11 18:22] LABS: Alanine Aminotransferase 65 U/L (12-78); Albumin/Globulin Ratio 1.3 (1.1-1.8); Alkaline Phosphatase 239 U/L (38-126); Anion Gap 17.8 mEq/L (5-15); Aspartate Amino Transferase 79 U/L (17-59); Bilirubin,Total 1.2 mg/dl (0.2-1.3); Carbon Dioxide 18 mmol/L (22.0-30.0); Globulin 3.2 g/dL (1.3-3.2); Total Protein,Serum 7.4 g/dl (6.3-8.2)
[2025-05-11 18:23] LABS: Calcium 8.8 mg/dl (8.4-10.2); Glucose 109 mg/dl (74-100)
[2025-05-11 18:33] LABS: Hematocrit 31.7 % (42.0-52.0); Hemoglobin 11.0 g/dL (14.1-18.0); Immature Granulocytes % 0.4 %; Mean Corpuscular HGB Conc 34.7 g/dL (31.8-35.4); Mean Corpuscular Hemoglobin 39.7 pg (27.0-31.2); Mean Corpuscular Volume 114.4 fl (80-94); Nucleated Red Blood Cells % 0 %; Platelet Count 249 K/mm3 (142-424); Red Blood Count 2.77 M/mm3 (4.60-6.20); Red Cell Distribution Width-SD 60.5 fL; White Blood Count 5.7 K/mm3 (4.8-10.8)
[2025-05-11] MEDS: COLCHICINE 0.6MG TABLET 1.2 MG PO (18:57)
[2025-05-11 19:08] LABS: Blood Urea Nitrogen 40 mg/dl (9-20); Creatinine Clearance Estimated 61 mL/min (50-200); Creatinine,Serum 3.10 mg/dl (0.66-1.25); Estimated Glomerular Filt Rate 23 ml/min (>60); GFR (African American) 27 ML/MIN (>60); Uric Acid 13.7 mg/dl (3.5-8.5)
[2025-05-11 19:12] VITALS: BP 107/62; PULSE 66; O2SAT 100
[2025-05-11 19:13] LABS: C-Reactive Protein 5.7 mg/L (0-4)
--- NOTE | 2025-05-11 19:31 | ECG_ITS ---
APPROVED REPORT Exam: Resting ECG HR:60 bpm ECG Measurements Heart Rate 60 AXES TX 154 P 14 QRSd 102 QRS 49 QT 386 T 12 QTc 387 Conclusion Normal sinus rhythm Normal axis Normal intervals No STEMI Isolated T wave inversion in lead III Electronically signed by : Rony Elder, 05/12/2025 03:08:25
[2025-05-11] MEDS: LACTATED RINGERS 1000ML 1,000 ML 999 ML IV (19:52)
[2025-05-11 19:57] VITALS: BP 108/67; PULSE 57; RESP 17; TEMP 37.2; O2SAT 99
[2025-05-11 20:15] VITALS: BP 105/62; PULSE 64; RESP 11; O2SAT 100
--- NOTE | 2025-05-11 20:26 | PC.NURSE ---
pt arrived to floor via wheelchair from ED
[2025-05-11 20:34] VITALS: BP 134/89; PULSE 61; RESP 17; TEMP 36.7; O2SAT 99; BMI 39.9
--- NOTE | 2025-05-11 21:36 | P.HP_ITS ---
<Statement entered by Shay Callahan MD - 05/12/25 16:20> Rounded on patient after nurse practitioner. Personally examined and interviewed patient. Agree with exam findings and care plan as documented. History of Present Illness *Admission Date: 05/11/25 *Reason for visit:: right foot pain *History of present illness: 39 year old male patient present to ER with right foot pain at the right first MTP joint. Denies injury. NO fever, chills or body aches. No history of this pain. MOther has gout, he felt his symptoms were similar. Reports daily alcohol use, eats red meat and fish. States he ate fish the day before symptoms started. Has been taking 2 tylenol and 3 ibuprofen daily for the pain without relief. [facility] Disclaimer: The information contained in this section may have been updated after the patient was seen, as this information can be updated by other users. Medical History (Updated 05/11/25 @ 22:50 by Claire Pozo APRN) Obesity Fatty liver disease, nonalcoholic (Unknown) Cough with hemoptysis Bronchitis Scalp cyst Hypertension Hyperlipidemia Surgical History Hx of tonsillectomy H/O gastric sleeve No significant past surgical history Family History (Updated 05/11/25 @ 20:52 by Ella Lopez RN) Mother Hypertension Gout Father Diabetes Father Descending aortic aneurysm Other No significant family history Social History (Updated 05/11/25 @ 22:13 by Claire Pozo APRN) Smoking Status: Never smoker second hand exposure: No alcohol intake: current alcohol intake frequency: 0-2 drinks per day Type: hard liquor substance use type: denies use current occupational status: employed Travel in the last 8 weeks?: None housing: house current occupational exposures/hazards: Yes caffeine: No Have you lived/traveled outside US in past 30 days?: No Contact w/someone who lives/traveled outside US past 30 days?: No Exposure to someone with infectious disease in past 14 days?: No Do you have a fever (greater than 100.4 F or 38 C)?: No Have you tested positive for COVID-19?: No Exposed to someone with COVID-19 in past 14 days?: No Do you have a sore throat?: No Do you have a cough?: No Do you have any weakness?: No Do you have any diarrhea?: No Are you experiencing any unusual bleeding?: No Do you have any muscle aches/pain?: No Do you have any abdominal pain?: No Are you experiencing loss of taste or smell?: No Other Medical History Have you received the Flu Vaccine for this season: No Have you received the Pneumonia Vaccine: No Review of Systems Constitutional Constitutional: Reports system reviewed and no additional complaints, except as documented, Denies body ache(s) and Denies chills Eyes Eyes: Reports system reviewed and no additional complaints, except as documented ENT Ears, Nose, Mouth, and Throat: Reports system reviewed and no additional complaints, except as documented *Cardiovascular Cardiovascular: Reports system reviewed and no additional complaints, except as documented and Denies chest pain *Respiratory Respiratory: Reports system reviewed and no additional complaints, except as documented *Gastrointestinal Gastrointestinal: Reports system reviewed and no additional complaints, except as documented *Genitourinary Genitourinary: Reports system reviewed and no additional complaints, except as documented *Musculoskeletal Musculoskeletal: Reports arthralgias *Neurologic Neurologic: Reports system reviewed and no additional complaints, except as documented Psychiatric Psychiatric: Reports system reviewed and no additional complaints, except as documented Endocrine Endocrine: Reports system reviewed and no additional complaints, except as documented Hematologic/Lymphatic Hematologic/Lymphatic: Reports system reviewed and no additional complaints, except as documented Meds Home Medications and Allergies Home Medications ?Medication ?Instructions ?Recorded ?Confirmed ?Type lisinopril 20 2 tab PO DAILY #60 tabs 09/2505/11/25 Rx mg-hydrochlorothiazide 25 mg tablet bisoprolol fumarate 10 mg tablet 10 mg PO DAILY 05/11/25 History New Prescriptions to Start Prescriptions: Allergies Allergy/AdvReac Type Severity Reaction Status Date / Time meperidine (From Demerol) Allergy Unknown Verified 09/20/24 09:19 Sulfa (Sulfonamide Allergy Unknown Verified 09/20/24 09:19 Antibiotics) amlodipine AdvReac Rash Verified 09/20/24 09:19 Exam Data for Last 24 hours Vital signs and Labs for Last 24 Hours: Temp Pulse Resp BP Pulse Ox O2 Del Method 98.0 F 61 17 134/89 99 Room Air 05/11/25 20:34 05/11/25 20:34 05/11/25 20:34 05/11/25 20:34 05/11/25 20:34 05/11/25 21:00 Laboratory Results - last 24 hr 05/11/25 17:50: WBC 5.7, RBC 2.77 L, Hgb 11.0 L, Hct 31.7 L, MCV 114.4 H, MCH 39.7 H, MCHC 34.7, RDW 14.3, Plt Count 249, MPV 10.4, Neut % (Auto) 62.0, Lymph % (Auto) 26.8, [place] % (Auto) 6.0, Eos % (Auto) 3.9, Baso % (Auto) 0.9, Neut # (Auto) 3.6, Lymph # (Auto) 1.5, [place] # (Auto) 0.3, Eos # (Auto) 0.2, Baso # (Auto) 0.1, ESR 38 H, Sodium 136, Potassium 4.8, Chloride 105, Carbon Dioxide 18 L, Anion Gap 17.8 H, BUN 40 H, Creatinine 3.10 H, Estimated Creat Clear 61, Estimated GFR 23 L, Est GFR ( Amer) 27 L, Glucose 109 H, Uric Acid 13.7 H , Calcium 8.8, Total Bilirubin 1.2, AST 79 H, ALT 65, Alkaline Phosphatase 239 H , C-Reactive Protein 5.7 H, Total Protein 7.4, Albumin 4.2, Globulin 3.2, Albumin/Globulin Ratio 1.3 I & O for Last 24 hours: Intake & Output 05/08/25 05/09/25 05/10/25 05/11/25 23:59 23:59 23:59 23:59 Weight 133.764 kg Constitutional Constitutional: no acute distress, obese and cooperative *Routine HEENT Exam Head: Present normocephalic Eye: Present PERRL ENT: Present mucous membranes moist *Routine Neck Exam Neck: Present supple *Routine Respiratory Exam Respiratory: Present CTA bilaterally *Routine Cardiovascular Exam Cardiovascular: Present RRR, Normal S1 and Normal S2 *Routine Abdominal Exam Abdominal: Present soft and normoactive bowel sounds *Routine Rectal Exam Rectal:: deferred *Routine Genitalia Exam Genitalia:: deferred *Routine Extremities Exam Comments: tenderness and slight swelling to right MTP joint, no edema otherwise, venous stasis discoloration left lower leg *Routine Neurological Exam Neurological: Present alert, oriented X3 and moving all extremities Assessment and Plan *Assessment and plan (1) Acute kidney injury: Status: Acute Category: Medical Code(s): N17.9 - Acute kidney failure, unspecified (2) Gout attack: Status: Acute Qualifiers: Gout etiology: unspecified cause Gout site: foot Laterality: right Qualified Code(s): M10.9 - Gout, unspecified Category: Medical Code(s): M10.9 - Gout, unspecified (3) Essential hypertension: Status: Acute Category: Medical Code(s): I10 - Essential (primary) hypertension (4) Hyperlipidemia: Status: Acute Qualifiers: Hyperlipidemia type: unspecified Qualified Code(s): E78.5 - Hyperlipidemia, unspecified Category: Medical Code(s): E78.5 - Hyperlipidemia, unspecified (5) Obesity: Status: Acute Qualifiers: Body mass index: BMI 45.0-49.9 Obesity classification: adult class 3 (BMI >= 40) Obesity type: due to excess calories Serious obesity comorbidity presence: with serious comorbidity Qualified Code(s): E66.01 - Morbid (severe) obesity due to excess calories; Z68.42 - Body mass index [BMI] 45.0-49.9, adult Category: Medical Code(s): E66.9 - Obesity, unspecified (6) ELIZABETH (obstructive sleep apnea): Status: Acute Category: Medical Code(s): G47.33 - Obstructive sleep apnea (adult) (pediatric) (7) Elevated liver enzymes: Status: Acute Category: Medical Code(s): R74.8 - Abnormal levels of other serum enzymes (8) Vitamin D deficiency: Status: Acute Category: Medical Code(s): E55.9 - Vitamin D deficiency, unspecified (9) Fatty liver disease, nonalcoholic: Status: Acute Category: Medical Code(s): K76.0 - Fatty (change of) liver, not elsewhere classified (10) Anemia, macrocytic: Status: Acute Category: Medical Code(s): D53.9 - Nutritional anemia, unspecified Plan presented to ER with acute right foot pain had suspicion that it was gout. Lab results support with elevated uric acid, CRP and ESR. Was also found to have a significant TERRI with a Cr of 3.1.Hospitalist agreed to admit due to TERRI. This is likely multifactorial. Will hold Lisinopril/HCTZ and avoid other nephrotoxic agents. Can continue bisoprolol at lower dose. Both antihypertensives were increase in Aug 2024 due to poor control. Start allopurinol at renal dose and prednisone. Oxycodone for pain.IVF at 125ml/hr. monitor urine output. Repeat labs in the morning. History of elevated liver enzymes, recent ultrasound of liver was normal except fatty infiltration. Although AST and Alk Phos are elevated, it is much improved from previous. HGB of 11 is new, will monitor with CBC in am. No obvious source of bleeding and does use alcohol daily. Will check b12 and folate as well as retic count. Office note states lipitor started however he is not currently taking a statin.
[2025-05-11] MEDS: 0.9 % SODIUM CHLORIDE 1000ML 1,000 ML 125 ML IV (23:40)
[2025-05-11 23:52] LABS: Reticulocyte % (Auto) 7.6 % (0.9-3.2)
[2025-05-12 01:20] LABS: Vitamin B12 271 pg/mL (239-931)
[2025-05-12 01:40] LABS: Folate 2.50 ng/mL
[2025-05-12 04:00] VITALS: BP 135/79; PULSE 74; RESP 16; TEMP 36.8; O2SAT 100; BMI 39.9
[2025-05-12 06:23] LABS: Hematocrit 27.1 % (42.0-52.0); Immature Granulocytes % 0.2 %; Mean Corpuscular HGB Conc 34.7 g/dL (31.8-35.4); Mean Corpuscular Hemoglobin 39.3 pg (27.0-31.2); Mean Corpuscular Volume 113.4 fl (80-94); Nucleated Red Blood Cells % 0 %; Platelet Count 181 K/mm3 (142-424); Red Blood Count 2.39 M/mm3 (4.60-6.20); Red Cell Distribution Width-SD 58.7 fL; White Blood Count 4.4 K/mm3 (4.8-10.8)
[2025-05-12 06:30] LABS: Hemoglobin 9.4 g/dL (14.1-18.0)
[2025-05-12 06:36] LABS: Chloride 105 mmol/L (98-107); Potassium 4.8 mmoL/L (3.5-5.1); Sodium 135 mmol/L (136-145)
[2025-05-12 06:39] LABS: Blood Urea Nitrogen 35 mg/dl (9-20); Creatinine Clearance Estimated 86 mL/min (50-200); Creatinine,Serum 2.20 mg/dl (0.66-1.25); Estimated Glomerular Filt Rate 34 ml/min (>60); GFR (African American) 41 ML/MIN (>60)
[2025-05-12 06:40] LABS: Anion Gap 14.8 mEq/L (5-15); Calcium 8.3 mg/dl (8.4-10.2); Carbon Dioxide 20 mmol/L (22.0-30.0); Glucose 133 mg/dl (74-100)
[2025-05-12 08:00] VITALS: BP 133/73; PULSE 80; RESP 18; TEMP 36.7; O2SAT 99
[2025-05-12 08:03] LABS: Uric Acid 12.9 mg/dl (3.5-8.5)
[2025-05-12] MEDS: 0.9 % SODIUM CHLORIDE 1000ML 1,000 ML 125 ML IV (08:29)
[2025-05-12] MEDS: ALLOPURINOL 100MG TABLET 100 MG PO (08:39)
[2025-05-12 09:40] LABS: Total Cells Counted 100
[2025-05-12 09:41] LABS: RBC Morphology Normal
[2025-05-12] MEDS: FUROSEMIDE 40MG/4ML VIAL 40 MG IV (10:46)
--- NOTE | 2025-05-12 11:31 | P.PN_ITS ---
Subjective *Date: 05/12/25 *Time: 14:58 Interval history: Feeling somewhat better today. Having good urine output. Denies fever. Pain improving in right foot. Had 600 cc of urine output this morning. Afebrile. Stable on room air. Medical Exam Vital signs and Labs for Last 24 Hours: Vital Signs Temp Pulse Pulse Resp BP BP Pulse Ox 05/12/25 11:00 05/12/25 09:00 05/12/25 08:00 05/12/25 08:00 98.1 F 80 18 133/73 99 05/12/25 06:20 05/12/25 05:00 05/12/25 04:00 98.3 F 74 16 135/79 100 05/12/25 03:00 05/12/25 01:00 05/11/25 23:00 05/11/25 21:00 05/11/25 20:34 98.0 F 61 17 134/89 99 05/11/25 20:15 64 11 L 105/62 L 100 05/11/25 20:00 05/11/25 19:57 98.9 F 57 L 17 108/67 L 05/11/25 19:12 66 107/62 L 100 05/11/25 17:38 97.7 F 69 20 122/86 100 O2 Del Method 05/12/25 11:00 Room Air 05/12/25 09:00 Room Air 05/12/25 08:00 Room Air 05/12/25 08:00 Room Air 05/12/25 06:20 Room Air 05/12/25 05:00 Room Air 05/12/25 04:00 Room Air 05/12/25 03:00 Room Air 05/12/25 01:00 Room Air 05/11/25 23:00 Room Air 05/11/25 21:00 Room Air 05/11/25 20:34 Room Air 05/11/25 20:15 Room Air 05/11/25 20:00 Room Air 05/11/25 19:57 Room Air 05/11/25 19:12 Room Air 05/11/25 17:38 Room Air Intake and Output 05/11/25 05/12/25 05/12/25 23:59 07:59 15:59 Intake Total 2360 / 2720 360 / 2720 Output Total 600 / 600 Balance 2360 / 2120 -240 / 2120 Intake: Intake, Oral Amount 360 / 720 360 / 720 Intake, Total IV Amount 1999 / 1999 0.9 % Sodium Chloride 1000ML 1, 1000 / 1000 000 ml @ 125 mls/hr IV .Q8H [facility] Rx#:[id number] Lactated Ringers 1000ML 1,000 1000 / 1000 ml @ 999 mls/hr IV .Q1H1M [facility] Rx#:[id number] Output: Output, Urine Amount 600 / 600 Other: Weight 133.764 kg 133.583 kg Patient Weight 05/12/25 23:59 Weight 133.583 kg Laboratory Results - last 24 hr 05/11/25 17:50: WBC 5.7, RBC 2.77 L, Hgb 11.0 L, Hct 31.7 L, MCV 114.4 H, MCH 39.7 H, MCHC 34.7, RDW 14.3, Plt Count 249, MPV 10.4, Neut % (Auto) 62.0, Lymph % (Auto) 26.8, [place] % (Auto) 6.0, Eos % (Auto) 3.9, Baso % (Auto) 0.9, Neut # (Auto) 3.6, Lymph # (Auto) 1.5, [place] # (Auto) 0.3, Eos # (Auto) 0.2, Baso # (Auto) 0.1, ESR 38 H, Sodium 136, Potassium 4.8, Chloride 105, Carbon Dioxide 18 L, Anion Gap 17.8 H, BUN 40 H, Creatinine 3.10 H, Estimated Creat Clear 61, Estimated GFR 23 L, Est GFR ( Amer) 27 L, Glucose 109 H, Uric Acid 13.7 H , Calcium 8.8, Total Bilirubin 1.2, AST 79 H, ALT 65, Alkaline Phosphatase 239 H , C-Reactive Protein 5.7 H, Total Protein 7.4, Albumin 4.2, Globulin 3.2, Albumin/Globulin Ratio 1.3 05/11/25 23:34: Retic Count (auto) 7.6 H, Vitamin B12 271, Folate 2.50 05/12/25 06:04: WBC 4.4 L, RBC 2.39 L, Hgb 9.4 L D, Hct 27.1 L, MCV 113.4 H, MCH 39.3 H, MCHC 34.7, RDW 14.0, Plt Count 181 D, MPV 10.1, Neut % (Auto) 88.9 H, Lymph % (Auto) 7.7 L, [place] % (Auto) 2.7, Eos % (Auto) 0.0 L, Baso % (Auto) 0.5, Neut # (Auto) 3.9, Lymph # (Auto) 0.3 L, [place] # (Auto) 0.1, Eos # (Auto) 0.0, Baso # (Auto) 0.0, Total Counted 100, Neutrophils % (Manual) 92 H, Lymphocytes % (Manual) 5 L, Monocytes % (Manual) 3, Platelet Estimate Normal, RBC Morphology Normal, Sodium 135 L, Potassium 4.8, Chloride 105, Carbon Dioxide 20 L, Anion Gap 14.8, BUN 35 H, Creatinine 2.20 H D, Estimated Creat Clear 86, Estimated GFR 34 L, Est GFR ( Amer) 41 L D, Glucose 133 H D, Uric Acid 12.9 H, Calcium 8.3 L I & O for Labs for Last 24 Hours: Intake & Output 05/09/25 05/10/25 05/11/25 05/12/25 23:59 23:59 23:59 23:59 Intake Total 2720 / 2720 Output Total 600 / 600 Balance 2119 / 2119 Weight 133.764 kg 133.583 kg Constitutional: Present no acute distress, obese and cooperative Head: Present atraumatic and normocephalic ENT: Present normal exam Respiratory: Present normal respiratory effort; Absent rhonchi, wheezes or crackles Cardiac: Present Reg Rate and Rhythm GI: Present soft and normal bowel sounds; Absent distention or tenderness Extremities: Present normal inspection, full ROM and tenderness (Around right great toe MTP joint) Skin: Present intact; Absent erythema Neuro: Present Grossly Intact, alert, awake, oriented x 3 and moves all extremities Assessment and Plan *Assessment and plan (1) Acute kidney injury: Status: Acute Category: Medical Code(s): N17.9 - Acute kidney failure, unspecified (2) Gout attack: Status: Acute Qualifiers: Gout site: foot Gout etiology: unspecified cause Laterality: right Qualified Code(s): M10.9 - Gout, unspecified Category: Medical Code(s): M10.9 - Gout, unspecified (3) Essential hypertension: Status: Acute Category: Medical Code(s): I10 - Essential (primary) hypertension (4) Hyperlipidemia: Status: Acute Qualifiers: Hyperlipidemia type: unspecified Qualified Code(s): E78.5 - Hyperlipidemia, unspecified Category: Medical Code(s): E78.5 - Hyperlipidemia, unspecified (5) Obesity: Status: Acute Qualifiers: Obesity type: due to excess calories Obesity classification: adult class 3 (BMI >= 40) Serious obesity comorbidity presence: with serious comorbidity Body mass index: BMI 45.0-49.9 Qualified Code(s): E66.01 - Morbid (severe) obesity due to excess calories; Z68.42 - Body mass index [BMI] 45.0- 49.9, adult Category: Medical Code(s): E66.9 - Obesity, unspecified (6) ELIZABETH (obstructive sleep apnea): Status: Acute Category: Medical Code(s): G47.33 - Obstructive sleep apnea (adult) (pediatric) (7) Elevated liver enzymes: Status: Acute Category: Medical Code(s): R74.8 - Abnormal levels of other serum enzymes (8) Vitamin D deficiency: Status: Acute Category: Medical Code(s): E55.9 - Vitamin D deficiency, unspecified (9) Fatty liver disease, nonalcoholic: Status: Acute Category: Medical Code(s): K76.0 - Fatty (change of) liver, not elsewhere classified (10) Anemia, macrocytic: Status: Acute Category: Medical Code(s): D53.9 - Nutritional anemia, unspecified Plan presented to ER with acute right foot pain had suspicion that it was gout. Lab results support with elevated uric acid, CRP and ESR. Was also found to have a significant TERRI with a Cr of 3.1.Hospitalist agreed to admit due to TERRI. Showing some improvement this morning and pain. Kidney function improving. Continues to require inpatient management however. Problems addressed as follows: Gout Elevated uric acid TERRI -Differential includes prerenal versus medication induced TERRI from NSAIDs versus uric acid nephropathy. Will continue aggressive fluid management with normal saline at 125 cc an hour for today. Will also administer 1 dose Lasix 40 mg IV to promote urine production and flushing of renal tubules. - Creatinine improved to 2.2 this morning, BUN 35. Repeat every 12 hours pending improvement. Baseline approximately 0.9. - Continue allopurinol 100 mg daily. Initiate Uloric in the morning - Continue prednisone 40 mg p.o. daily for gout attack. Initiate colchicine 0.6 mg daily. - Oxycodone 5 mg every 6 hours as needed for severe pain. Monitor for toxicity - Repeat CBC, CMP, magnesium and uric acid level ordered for the morning. - Uric acid improved from 13.7-12.9. Hypertension: Resume home bisoprolol 10 mg daily. Holding CONSTANCE inhibitor and diuretic (HCTZ) due to TERRI. Administered Lasix once as above for renal tubular clearance due to concern for uric acid nephropathy Macrocytosis: Reticulocyte count 7.6%. B12 270, folate 2.5. Hemoglobin 9.5 however all cell lines dropped by several points consistently consistent with dilution. 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 Will administer B12 IM once Full code Regular diet Lovenox 40 mg subcu daily
--- OUTSIDE RECORDS SUMMARY | 2025-05-12 13:58 | XMS_ITS | Clinical Summary ---
Author Organization [facility] Address [address] [place] [address] Phone [email or web address] Care Team Providers Care Naturalist Name Role Phone Provider, No Primary Care Provider Unavailabl e Allergies Active Allergy Reactions Criticality Noted Date Comments Meperidine 05/20/2022 Sulfa Antibiotics 05/20/2022 Medications lisinopril-hydroC HLOROthiazide (ZESTORETIC) 20-12.5 MG per tabletIndications :Malignant hypertension Take 1 tablet by mouth 1 (one) time each day for 10 days. 10 tablet 09/17/2024 Active Active Problems Problem Noted Date Diagnosed Date Encounter for hearing screening without abnormal findings 09/21/2024 Social History Tobacco Use Types Packs/Day Years Used Date Smoking Tobacco: Never Passive Smoke Exposure: Never Smokeless Tobacco: Former Chew Tobacco Cessation:Counseling Given: Not Answered Intimate Partner Violence Answer Date R ecorded Insults You Not on file 05/20/2022 Threatens You Not on file 05/20/2022 Screams at You Not on file 05/20/2022 Physically Hurt Not on file 05/20/2022 Intimate Partner Violence Score Not on file 05/20/2022 Depression Answer Date Recorded PHQ Total Score 0 09/17/2024 Stress Answer Date Recorded Stress in your Life Not on file 06/02/2024 Dealing with Stress 3 06/02/2024 Sex and Gender Information Value Date Recorded Sex Assigned at Not on file Legal Sex Male 6:58 AM CDT Gender Identity Not on file Sexual Orientation Not on file Last Filed Vital Signs Vital Sign Reading Time Taken Comments Blood Pressure 168/102 09/20/2024 1:37 PM EST Pulse 80 09/20/2024 1:37 PM EST Temperature 35.9 C (96.6 F) 09/20/2024 1:37 PM EST Respiratory Rate 16 09/20/2024 1:37 PM EST Oxygen Saturation 97% 09/20/2024 1:37 PM EST Inhaled Oxygen Concentration - - Weight 148 kg (327 lb) 09/20/2024 1:37 PM EST Height 182.9 cm (6') 09/20/2024 1:37 PM EST Body Mass Index 44.35 09/20/2024 1:37 PM EST Plan of Treatment Health Maintenance Due Date Last Done Comments Dental Cleaning/Exam 1986 HIV Screening 1986 Hepatitis C Screening 1986 HPV Immunization (1 - Male 3 -dose series) 2001 Hep B Infection Screening - Triple Screen 2004 Hepatitis B Immunization (1 of 3 - 19+ 3-dose series) 2005 Tetanus Diphtheria and Pertu ssis Immunization (1 - Tdap) 2005 Annual Preventive Exam 05/20/2023 05/20/2022 Covid-19 Immunization (1 - 2 25 season) 2025 Influenza Immunization (#1) 2025 HIB Immunization Aged Out No longer e ligible based on patient's age to complete this topic Hepatitis A Immunization Aged Out No longer eligible based on patient's age to complete this topic Pneumococcal Immunization Aged Out No longer eligible based on patient's age to complete this topic Polio Immunization Aged Out No longer eligible based on patient's age to complete this topic Varicella Immunization Aged Out No lo nger eligible based on patient's age to complete this topic Insurance [employer] [place] [facility] Address: [address] [place] [address] [id number] [place] [address] Care Teams Naturalist Relationship Specialty Start Date End Date Provider, [facility] Lucio [id number] PCP - General Valet 08/06/22
[2025-05-12 15:51] VITALS: BP 128/74; PULSE 75; RESP 16; TEMP 36.8; O2SAT 99
[2025-05-12] MEDS: COLCHICINE 0.6MG TABLET 0.6 MG PO (16:07)
[2025-05-12] MEDS: VITAMIN B-12 1,000 MCG 1ML VIAL 1000 MCG IM (16:07)
[2025-05-12 18:24] LABS: Anion Gap 17.5 mEq/L (5-15); Blood Urea Nitrogen 38 mg/dl (9-20); Calcium 8.5 mg/dl (8.4-10.2); Carbon Dioxide 17 mmol/L (22.0-30.0); Chloride 105 mmol/L (98-107); Creatinine Clearance Estimated 90 mL/min (50-200); Creatinine,Serum 2.10 mg/dl (0.66-1.25); Estimated Glomerular Filt Rate 36 ml/min (>60); GFR (African American) 43 ML/MIN (>60); Glucose 204 mg/dl (74-100); Potassium 4.5 mmoL/L (3.5-5.1); Sodium 135 mmol/L (136-145)
[2025-05-12 20:00] VITALS: BP 126/72; PULSE 64; RESP 18; TEMP 36.5; O2SAT 100
[2025-05-13 04:00] VITALS: BP 133/66; PULSE 53; RESP 16; TEMP 36.5; O2SAT 100; BMI 39.6
--- NOTE | 2025-05-13 06:21 | PC.NURSE ---
No events overnight. Patient voices that his pain has significantly improved since started his gout medication. Patient with adequate oral intake overnight of water with appropriate urine output. Patient ambulates independently to bathroom, and denies further needs. Call light within reach.
[2025-05-13 06:33] LABS: Hematocrit 26.4 % (42.0-52.0); Hemoglobin 9.1 g/dL (14.1-18.0); Immature Granulocytes % 0.4 %; Mean Corpuscular HGB Conc 34.5 g/dL (31.8-35.4); Mean Corpuscular Hemoglobin 39.7 pg (27.0-31.2); Mean Corpuscular Volume 115.3 fl (80-94); Nucleated Red Blood Cells % 0 %; Platelet Count 175 K/mm3 (142-424); Red Blood Count 2.29 M/mm3 (4.60-6.20); Red Cell Distribution Width-SD 59.7 fL; White Blood Count 5.4 K/mm3 (4.8-10.8)
[2025-05-13 06:52] LABS: Chloride 102 mmol/L (98-107); Potassium 4.0 mmoL/L (3.5-5.1); Sodium 135 mmol/L (136-145)
[2025-05-13 06:55] LABS: Anion Gap 14.0 mEq/L (5-15); Blood Urea Nitrogen 36 mg/dl (9-20); Calcium 8.3 mg/dl (8.4-10.2); Carbon Dioxide 23 mmol/L (22.0-30.0); Creatinine Clearance Estimated 99 mL/min (50-200); Creatinine,Serum 1.90 mg/dl (0.66-1.25); Estimated Glomerular Filt Rate 40 ml/min (>60); GFR (African American) 48 ML/MIN (>60); Glucose 102 mg/dl (74-100)
[2025-05-13 07:24] LABS: Uric Acid 12.5 mg/dl (3.5-8.5)
[2025-05-13 07:45] LABS: Magnesium 1.0 mg/dl (1.6-2.3)
[2025-05-13 08:00] VITALS: BP 127/73; PULSE 76; RESP 20; TEMP 36.6; O2SAT 100
[2025-05-13] MEDS: BISOPROLOL 5MG TABLET 10 MG PO (09:25)
[2025-05-13] MEDS: COLCHICINE 0.6MG TABLET 0.6 MG PO (09:25)
[2025-05-13] MEDS: ALLOPURINOL 100MG TABLET 100 MG PO (09:26)
[2025-05-13] MEDS: MAGNESIUM SULFATE IN WATER 2 GM/50 ML PIGGYBACK IV ×3 (09:27→12:09)
[2025-05-13] MEDS: FEBUXOSTAT 40MG 1 EACH PO (11:22)
--- NOTE | 2025-05-13 15:53 | EXP.DC.SUM ---
General Admission date:: 05/11/25 Discharge date: 05/13/25 HPI HPI HPI: 39 year old male patient present to ER with right foot pain at the right first MTP joint. Denies injury. NO fever, chills or body aches. No history of this pain. MOther has gout, he felt his symptoms were similar. Reports daily alcohol use, eats red meat and fish. States he ate fish the day before symptoms started. Has been taking 2 tylenol and 3 ibuprofen daily for the pain without relief. Hospital Course Hospital Course Hospital Course: Mr. La is a 39-year-old male who presented to ER with acute right foot pain had suspicion that it was gout. Lab results support with elevated uric acid, CRP and ESR. Was also found to have a significant TERRI with a Cr of 3.1. He was admitted for management of TERRI, and hyperuricemia. He showed improvement during admission with kidney function showing gradual and consistent improvement. Pain in his right foot improving. Started on treatment for his gout. As he is tolerating oral intake, kidney functions improving, and pain is controlled, meeting criteria for discharge home with further management as an outpatient. Problems addressed as follows: Gout Elevated uric acid TERRI - Acute kidney injury on presentation with differential including prerenal versus medication induced TERRI from NSAIDs versus uric acid nephropathy. Initiated on aggressive fluid management for his TERRI with normal saline. Initially only on fluids, on second day of admission received 1 dose of Lasix to promote urine production and flushing of renal tubules out of concern for uric acid nephropathy. Showed good response. Creatinine and significant improvement from 3.1-1.9 by day of discharge. BUN improved to 36. Started on allopurinol 100 mg daily, Uloric 40 mg daily, and prednisone 40 mg daily for his hyperuricemia and gout attack. Received colchicine 0.6 mg x 1. Had significant improvement in pain and swelling. Continue prednisone for few days after discharge. Repeat uric acid levels showed improvement from 13.7-12.5. Still quite elevated. Recommend repeat uric acid levels in 2 to 4 weeks to monitor for continued improvement and decreasing levels. As kidney function improves, consider increasing allopurinol dose based on renal function. Hypertension: Did well during admission, resumed home regimen including bisoprolol 10 mg daily. Held CONSTANCE inhibitor and HCTZ due to TERRI. Blood pressure well-controlled at discharge. Reevaluate blood pressure in the outpatient setting and consider resuming medications if increasing and kidney function is normalized. Macrocytosis: Initially not anemic but with fluid resuscitation, and have anemia with hemoglobin of 9.1 on day of discharge. No signs of bleeding. Reticulocyte count 7.6%. B12 270, folate 2.5. 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 Strong concern his daily alcohol use is a component of his anemia and vitamin deficiencies. Recommend daily multivitamin. Received B12 IM once during admission. Total time spent on discharge 32 minutes in counseling, documentation, chart review, and direct care with patient. Exam Data for Last 24 hours Vital signs and Labs for Last 24 Hours: Temp Pulse Resp BP Pulse Ox O2 Del Method 97.9 F 76 20 127/73 100 Room Air 05/13/25 08:00 05/13/25 08:00 05/13/25 08:00 05/13/25 08:00 05/13/25 08:00 05/13/25 13:00 Laboratory Results - last 24 hr 05/12/25 17:51: Sodium 135 L, Potassium 4.5, Chloride 105, Carbon Dioxide 17 L, Anion Gap 17.5 H, BUN 38 H, Creatinine 2.10 H, Estimated Creat Clear 90, Estimated GFR 36 L, Est GFR ( Amer) 43 L, Glucose 204 H D, Calcium 8.5 05/13/25 06:15: WBC 5.4, RBC 2.29 L, Hgb 9.1 L, Hct 26.4 L, MCV 115.3 H, MCH 39.7 H, MCHC 34.5, RDW 14.5, Plt Count 175, MPV 10.3, Neut % (Auto) 69.5, Lymph % (Auto) 21.1, [place] % (Auto) 8.2, Eos % (Auto) 0.4, Baso % (Auto) 0.4, Neut # (Auto) 3.7, Lymph # (Auto) 1.1, [place] # (Auto) 0.4, Eos # (Auto) 0.0, Baso # (Auto) 0.0, Sodium 135 L, Potassium 4.0, Chloride 102, Carbon Dioxide 23, Anion Gap 14.0, BUN 36 H, Creatinine 1.90 H, Estimated Creat Clear 99, Estimated GFR 40 L, Est GFR ( Amer) 48 L, Glucose 102 H D, Uric Acid 12.5 H, Calcium 8.3 L, Magnesium 1.0 L I & O for Last 24 hours: Intake & Output 05/10/25 05/11/25 05/12/25 05/13/25 23:59 23:59 23:59 23:59 Intake Total 4850.000 / 4850.000 2049 Output Total 3700 / 3700 2102 / 2102 Balance 1150.000 / 1150.000 -52 / -52 Weight 133.764 kg 133.583 kg 132.63 kg Constitutional Constitutional: no acute distress, obese and cooperative *Routine HEENT Exam Head: Present normocephalic Eye: Present EOMI and PERRL ENT: Present mucous membranes moist *Routine Neck Exam Neck: Present supple; Absent lymphadenopathy *Routine Respiratory Exam Respiratory: Present CTA bilaterally; Absent wheezes or crackles *Routine Cardiovascular Exam Cardiovascular: Present RRR *Routine Abdominal Exam Abdominal: Present soft and normoactive bowel sounds; Absent tenderness *Routine Rectal Exam Patient deferred: visual exam *Routine Exam Patient deferred: penile exam *Routine Extremities Exam Extremities: Absent cyanosis, clubbing or edema Comments: Right MTP joint with significant improvement in tenderness since admission. No redness or erythema. *Routine Skin Exam Skin: Present intact and warm; Absent rash *Routine Neurological Exam Neurological: Present alert, oriented X3 and moving all extremities; Absent altered mental status Results Data Completed and Pending Labs on day of discharge: Labs from last 24 hours 05/13/25 05/12/25 06:15 17:51 WBC 5.4 RBC 2.29 L Hgb 9.1 L Hct 26.4 L MCV 115.3 H MCH 39.7 H MCHC 34.5 RDW 14.5 Plt Count 175 MPV 10.3 Neut % (Auto) 69.5 Lymph % (Auto) 21.1 [place] % (Auto) 8.2 Eos % (Auto) 0.4 Baso % (Auto) 0.4 Neut # (Auto) 3.7 Lymph # (Auto) 1.1 [place] # (Auto) 0.4 Eos # (Auto) 0.0 Baso # (Auto) 0.0 Sodium 135 L 135 L Potassium 4.0 4.5 Chloride 102 105 Carbon Dioxide 23 17 L Anion Gap 14.0 17.5 H BUN 36 H 38 H Creatinine 1.90 H 2.10 H Estimated Creat Clear 99 90 Estimated GFR 40 L 36 L Est GFR ( Amer) 48 L 43 L Glucose 102 H D 204 H D Uric Acid 12.5 H Calcium 8.3 L 8.5 Magnesium 1.0 L DS: Diagnosis Discharge Diagnosis (1) Acute kidney injury: Status: Acute Code(s): N17.9 - Acute kidney failure, unspecified (2) Gout attack: Status: Acute Code(s): M10.9 - Gout, unspecified Qualifiers: Gout etiology: unspecified cause Gout site: foot Laterality: right Qualified Code(s): M10.9 - Gout, unspecified (3) Essential hypertension: Status: Acute Code(s): I10 - Essential (primary) hypertension (4) Hyperlipidemia: Status: Acute Code(s): E78.5 - Hyperlipidemia, unspecified Qualifiers: Hyperlipidemia type: unspecified Qualified Code(s): E78.5 - Hyperlipidemia, unspecified (5) Obesity: Status: Acute Code(s): E66.9 - Obesity, unspecified Qualifiers: Body mass index: BMI 45.0-49.9 Obesity classification: adult class 3 (BMI >= 40) Obesity type: due to excess calories Serious obesity comorbidity presence: with serious comorbidity Qualified Code(s): E66.01 - Morbid (severe) obesity due to excess calories; Z68.42 - Body mass index [BMI] 45.0-49.9, adult (6) ELIZABETH (obstructive sleep apnea): Status: Acute Code(s): G47.33 - Obstructive sleep apnea (adult) (pediatric) (7) Elevated liver enzymes: Status: Acute Code(s): R74.8 - Abnormal levels of other serum enzymes (8) Vitamin D deficiency: Status: Acute Code(s): E55.9 - Vitamin D deficiency, unspecified (9) Fatty liver disease, nonalcoholic: Status: Acute Code(s): K76.0 - Fatty (change of) liver, not elsewhere classified (10) Anemia, macrocytic: Status: Acute Code(s): D53.9 - Nutritional anemia, unspecified Meds Home Medications and Allergies Home Medications ?Medication ?Instructions ?Recorded ?Confirmed ?Type bisoprolol fumarate 10 mg tablet 10 mg PO DAILY 05/11/25 05/11/25 History allopurinol 100 mg tablet 100 mg PO DAILY 30 days #30 tabs 05/13/25 Rx colchicine 0.6 mg tablet (Colcrys) 0.6 mg PO DAILY PRN gout 10 days 05/13/25 Rx #10 tabs febuxostat 40 mg tablet (Uloric) 40 mg PO DAILY #30 tabs 05/13/25 Rx prednisone 20 mg tablet 40 mg (2 x 20 mg) PO DAILY 2 days 05/13/25 Rx #4 tabs vits 137-ferrous fumarate 1 tab PO 1700 30 days #30 tabs 05/13/25 Rx 27 mg iron-folic acid 0.8 mg tablet New Prescriptions to Start Prescriptions: allopurinol Shay Callahan colchicine [Colcrys] Shay Callahan febuxostat [Uloric] Shay Callahan prednisone Shay Callahan [id number] Shay Callahan Allergies Allergy/AdvReac Type Severity Reaction Status Date / Time meperidine (From Demerol) Allergy Unknown Verified 09/20/24 09:19 Sulfa (Sulfonamide Allergy Unknown Verified 09/20/24 09:19 Antibiotics) amlodipine AdvReac Rash Verified 09/20/24 09:19 Discharge Plan Disposition Patient Disposition: Home, Self-Care Condition: Good Discharge Order Discharge Orders: Discharge Order (Routine); Ordered 05/13/25 Ordered By: Shay Callahan Follow up Plan Follow up with: Re Hagan APRN [Primary Care Provider, [facility]] - Enter time for follow up Prescriptions/Medication Reconciliation: New prednisone 20 mg Tablet 40 mg PO DAILY 2 Days Qty: 4 0RF colchicine [Colcrys] 0.6 mg Tablet 0.6 mg PO DAILY PRN (Reason: gout) 10 Days Qty: 10 0RF [id number] ac 27mg iron- 0.8 mg Tablet 1 tab PO 1700 30 Days Qty: 30 0RF allopurinol 100 mg Tablet 100 mg PO DAILY 30 Days Qty: 30 0RF febuxostat [Uloric] 40 mg tablet 40 mg PO DAILY Qty: 30 0RF Continued bisoprolol fumarate 10 mg tablet 10 mg PO DAILY Discontinued lisinopril-hydrochlorothiazide 20-25 mg tablet 2 tab PO DAILY Qty: 60 6RF Problem Reconciliation Problems Reviewed?: Yes Patient Discharge Instructions ACTIVITY: Continue current activity DIET: continue same diet Patient Instructions: Gout, Acute Kidney Injury Print Language: Faroese Providers Primary Care Provider: Re Hagan Admit Provider: Shya Callahan Attending Provider: Shay Callahan
[2025-05-13] MEDS: PRENATAL MULTIVITAMIN W/IRON 1 EACH PO (16:30)
--- NOTE | 2025-05-17 10:31 | SW/DCPLANNER ---
Addendum entered by Camille Cheung 05/17/25 13:20: Patient called back. Patient stated that he is doing good. Patient stated that he is aware of his upcoming appointments. Patient stated that he was able to get his new medicine picked up. Patient stated that he has no concerns or questions at this time. Diane Schulz Original Note: Phoned patient x2. Left message with name and a call back number each time. Diane Schulz
== END 2025-05-13 17:03 | disposition home or self-care (01) | DRG 554 ==
LOC: ER 17:51 → 2ND 19:44
PROVIDERS: Nurse Practitioner Acute Care; Physician Assistant; Admitting Provider Internal Medicine Adolescent Medicine; Emergency Provider Student in an Organized Health Care Education/Training Program; PCP Family Medicine; Visit Provider Internal Medicine Adolescent Medicine
DX: M10.9 Gout, unspecified (principal); N17.9 Acute kidney failure, unspecified; I10 Essential (primary) hypertension; E78.5 Hyperlipidemia, unspecified; E66.01 Morbid (severe) obesity due to excess calories; G47.33 Obstructive sleep apnea (adult) (pediatric); E55.9 Vitamin D deficiency, unspecified; K76.0 Fatty (change of) liver, not elsewhere classified; D53.9 Nutritional anemia, unspecified; R74.8 Abnormal levels of other serum enzymes; Z68.39 Body mass index [BMI] 39.0-39.9, adult; Z88.2 Allergy status to sulfonamides; Z88.5 Allergy status to narcotic agent; Z88.8 Allergy status to other drugs, medicaments and biological substances; Z79.899 Other long term (current) drug therapy
CPT/HCPCS: 36415; 73630; 80048; 80053; 82607; 82746; 83735; 84550; 85007; 85025; 85044; 85651; 86140; 93005; 99285; J1650; J1938; J3420; J3475; J7030; J7120

== ENCOUNTER 2025-05-20 09:31 | Outpatient (CLI) | payer BC, SELFPAY ==
[2025-05-20 15:14] LABS: Hematocrit 28.8 % (42.0-52.0); Hemoglobin 9.3 g/dL (14.1-18.0); Immature Granulocytes % 0.5 %; Mean Corpuscular HGB Conc 32.3 g/dL (31.8-35.4); Mean Corpuscular Hemoglobin 38.8 pg (27.0-31.2); Mean Corpuscular Volume 120.0 fl (80-94); Nucleated Red Blood Cells % 0 %; Platelet Count 228 K/mm3 (142-424); Red Blood Count 2.40 M/mm3 (4.60-6.20); Red Cell Distribution Width-SD 63.4 fL; White Blood Count 5.8 K/mm3 (4.8-10.8)
[2025-05-20 15:37] LABS: Albumin Level 3.9 g/dl (3.5-5.0); Chloride 104 mmol/L (98-107); Potassium 4.2 mmoL/L (3.5-5.1); Sodium 136 mmol/L (136-145)
[2025-05-20 15:40] LABS: Alanine Aminotransferase 138 U/L (12-78); Albumin/Globulin Ratio 1.5 (1.1-1.8); Alkaline Phosphatase 284 U/L (38-126); Anion Gap 11.2 mEq/L (5-15); Aspartate Amino Transferase 73 U/L (17-59); Bilirubin,Total 2.2 mg/dl (0.2-1.3); Blood Urea Nitrogen 26 mg/dl (9-20); Calcium 9.3 mg/dl (8.4-10.2); Carbon Dioxide 25 mmol/L (22.0-30.0); Cholesterol 183 mg/dl (140-200); Creatinine,Serum 1.20 mg/dl (0.66-1.25); Estimated Glomerular Filt Rate 68 ml/min (>60); GFR (African American) 82 ML/MIN (>60); Globulin 2.6 g/dL (1.3-3.2); Glucose 93 mg/dl (74-100); HDL Cholesterol 61 mg/dl (40-60); Total Protein,Serum 6.5 g/dl (6.3-8.2); Triglycerides 86 mg/dl (30-150)
[2025-05-20 15:54] LABS: 25-OH Vitamin D, Total 35.1 ng/mL (30-100)
--- OUTSIDE RECORDS SUMMARY | 2025-05-23 09:43 | XMS_ITS | Clinical Summary ---
Author Organization [facility] Address [address] [place] [address] Phone [email or web address] Care Team Providers Care Explosive Operator Fuse Name Role Phone Provider, No Primary Care [...] this topic Insurance [employer] [place] [employer] [address] DIAZ [id number] [place] [address] Care Teams Explosive Operator Fuse Relationship Specialty Start Date End Date Provider, CHAO Lucio [id number] PCP - General Licensing Director 08/06/22
== END 2025-05-20 23:59 ==
LOC: LAB.DROPOF 05-23 09:32
PROVIDERS: PCP Family Medicine; Visit Provider Family Medicine
DX: E55.9 Vitamin D deficiency, unspecified (principal); D53.9 Nutritional anemia, unspecified; N17.9 Acute kidney failure, unspecified; E78.5 Hyperlipidemia, unspecified
CPT/HCPCS: 80053; 80061; 82306; 85025

== ENCOUNTER 2025-06-22 10:44 | Outpatient (CLI) | payer BC, SELFPAY ==
[2025-06-22 18:23] LABS: Hematocrit 33.9 % (42.0-52.0); Hemoglobin 11.0 g/dL (14.1-18.0); Immature Granulocytes % 0.5 %; Mean Corpuscular HGB Conc 32.4 g/dL (31.8-35.4); Mean Corpuscular Hemoglobin 35.1 pg (27.0-31.2); Mean Corpuscular Volume 108.3 fl (80-94); Nucleated Red Blood Cells % 0 %; Platelet Count 259 K/mm3 (142-424); Red Blood Count 3.13 M/mm3 (4.60-6.20); Red Cell Distribution Width-SD 50.3 fL; White Blood Count 8.3 K/mm3 (4.8-10.8)
[2025-06-22 18:38] LABS: Albumin Level 4.5 g/dl (3.5-5.0); Chloride 103 mmol/L (98-107); Potassium 4.3 mmoL/L (3.5-5.1); Sodium 143 mmol/L (136-145)
[2025-06-22 18:41] LABS: Alanine Aminotransferase 65 U/L (12-78); Albumin/Globulin Ratio 1.7 (1.1-1.8); Alkaline Phosphatase 231 U/L (38-126); Anion Gap 18.3 mEq/L (5-15); Aspartate Amino Transferase 62 U/L (17-59); Bilirubin,Total 1.0 mg/dl (0.2-1.3); Blood Urea Nitrogen 20 mg/dl (9-20); Carbon Dioxide 26 mmol/L (22.0-30.0); Creatinine,Serum 1.20 mg/dl (0.66-1.25); Estimated Glomerular Filt Rate 68 ml/min (>60); GFR (African American) 82 ML/MIN (>60); Globulin 2.7 g/dL (1.3-3.2); Total Protein,Serum 7.2 g/dl (6.3-8.2)
[2025-06-22 18:42] LABS: Calcium 9.7 mg/dl (8.4-10.2); Glucose 89 mg/dl (74-100)
--- OUTSIDE RECORDS SUMMARY | 2025-06-27 11:33 | XMS_ITS | Clinical Summary ---
Author Organization [facility] Address [address] [place] [address] Phone [email or web address] Care Team Providers Care Home Economics Teacher Name Role Phone Provider, No Primary Care [...] 05/20/2023 05/20/2022 Covid-19 Immunization (1 - 2 season) 2025 Influenza Immunization (#1) 2025 HIB [...] this topic Insurance [place] 5 [facility] Address: [address] [place] [address] DIAZ [id number] [place] [address] Care Teams Home Economics Teacher Relationship Specialty Start Date End Date Provider, CHAO Lucio [id number] PCP - General Copy Lathe Operator 08/06/22
== END 2025-06-22 23:59 ==
LOC: LAB.DROPOF 06-27 10:45
PROVIDERS: PCP Family Medicine; Visit Provider Student in an Organized Health Care Education/Training Program
DX: M10.9 Gout, unspecified (principal); I10 Essential (primary) hypertension
CPT/HCPCS: 80053; 85025